=== PATIENT | male | born 1980 | race Hispanic/Latino ===

== ENCOUNTER 2022-11-16 18:08 | Emergency (ER) | payer OTHER ==
[~2022-11-16] VITALS: Ht 177.8 cm; Wt 99.8 kg
[2022-11-16] MEDS ORDERED: LIDOCAINE HCL 1% 20 ML VIAL ONE (20:16)
[2022-11-16 20:30] VITALS: BP 146/65
[2022-11-16] MEDS ORDERED: SULF1TAB42 PO (20:36)
[2022-11-16] MEDS ORDERED: CEPH500B PO (20:36)
== END 2022-11-16 21:09 | disposition home or self-care (01) ==
LOC: EDH 18:08
DX: J86.9 Pyothorax without fistula (principal); L02.212 Cutaneous abscess of back [any part, except buttock and flank]; I10 Essential (primary) hypertension
CPT/HCPCS: 10060; 10080